=== PATIENT | female | born 1960 | race Caucasian/White ===

== ENCOUNTER → 2021-03-21 | Day surgery (SDC) | payer MEDICARE, OTHER ==
[~2021-03-21] VITALS: Ht 152.4 cm; Wt 50.8 kg
[~2021-03-21] MED LIST: ALPRAZOLAM0.5 MG PO; DICLOFENAC GEL 1% TOP; FLUTICASONE SPRAY; IBU800 MG PO; KEFLEX CAP 500500 MG PO; LEVOTHYROXINE PO; LOW DOSE ASPIRI81 MG PO; MEGACE 400400 MG/10 PO; MORPHINE SULFAT30 M4 PO; MULTIVITAMINS1 EAC1 PO; NARCAN; NEURONTIN300 MG PO; NORCO 7.5-3251 EACH PO; PRAVASTATIN SOD10 MG PO; VENTOLIN/PROVE0.5 ML INH; VITAMIN C500 M4 PO; VITAMIN D PO
== END | disposition home or self-care (01) ==
LOC: OR 05:35
DX: G56.03 Carpal tunnel syndrome, bilateral upper limbs (principal); J44.9 Chronic obstructive pulmonary disease, unspecified; E07.9 Disorder of thyroid, unspecified; F41.8 Other specified anxiety disorders; F11.20 Opioid dependence, uncomplicated; Z20.822 Contact with and (suspected) exposure to COVID-19; Z88.6 Allergy status to analgesic agent; Z90.49 Acquired absence of other specified parts of digestive tract
CPT/HCPCS: J0690; J1100; J2250; J2405; J2704; J3010; J7120